=== PATIENT | male | born 1995 | race African-American/Black ===

== ENCOUNTER 2019-12-25 10:22 | Emergency (ER) | payer OTHER ==
[~2019-12-25] VITALS: Ht 177.8 cm; Wt 83.0 kg
== END 2019-12-25 11:50 | disposition home or self-care (01) ==
LOC: ER 10:22
DX: L60.0 Ingrowing nail (principal)

== ENCOUNTER 2021-08-06 11:12 | Emergency (ER) | payer OTHER ==
[~2021-08-06] VITALS: Ht 177.8 cm; Wt 90.7 kg
== END 2021-08-06 15:17 | disposition home or self-care (01) ==
LOC: ER 11:12
DX: U07.1 COVID-19 (principal); R53.81 Other malaise; R50.9 Fever, unspecified